=== PATIENT | female | born 1995 | race Caucasian/White ===

== ENCOUNTER 2020-02-25 09:40 | Emergency (ER) | payer SELFPAY ==
[2020-02-25 10:12] VITALS: BP 108/75; PULSE 86; RESP 16; TEMP 36.8; O2SAT 98; BMI 34.0
--- NOTE | 2020-02-25 10:22 | W.ED.EXTPRO ---
HPI - Extremity Problem General: Chief complaint: Extremity Problem,Nontraumatic Stated complaint: RIGHT WRIST PAIN Time Seen by Provider: 02/25/20 10:15 History of Present Illness: HPI Narrative: Patient complains about soreness in her right wrist. A week or 2 been pulling up some jyotsna and in her house and has developed pain in her wrist denies any acute injury. MD Complaint: joint pain Onset (ago): day(s) Pain Consistency: constant Location: right and upper extremity Severity scale (1-10): 4 Quality: aching Radiation: none Relieving factors: immobilization Exacerbating factors: range of motion Associated symptoms: Reports no associated symptoms; Deny chest pain, fever(s) or rash Review of Systems Const: Denies: fever(s), chills or body aches Eyes: Denies: change in vision or blurry vision ENMT: Denies: throat pain or nasal congestion Card: Denies: chest pain or dyspnea on exertion Resp: Denies: dyspnea, productive cough or non-productive cough GI: Denies: abdominal pain, nausea or vomiting Musc: Reports: joint pain; Denies: extremity pain Skin/Breast: Denies: rash Neuro: Denies: headache(s) Psych: Denies: anxiety or depression Melecio/Lymph: Denies: easy bruising [facility] ED Female Reproductive History: Date of last menstrual period: 02/24/20 Physical Exam Const: COMMON NORMALS: no acute distress, average body habitus and patient oriented x3 HENMT: COMMON NORMALS: normocephalic HEAD & SCALP: normal to inspection and normocephalic FACE & SINUS: normal facial exam Eye: COMMON NORMALS: conjunctivae normal GENERAL EYE: appearance normal, both eyes and all related structures CONJUNCTIVA: Yes conjunctivae normal Neck/C-Spine: COMMON NORMALS: no JVD Chest: COMMONS NORMALS: normal inspection of the chest Resp: COMMON NORMALS: normal respiratory effort Cardio: COMMON NORMALS: no JVD Extremity: COMMON NORMALS: normal to inspection and full ROM RIGHT UPPER EXTREMITY: Yes wrist (Has tenderness to the ulnar side tenderness with range of motion there is no swelling no bruising no redness) Neuro: COMMON NORMALS: patient oriented x3 Course Vital Signs: Vital signs: Vital Signs Temperature 98.2 F 02/25/20 10:12 Pulse Rate 86 09/02/20 10:12 Respiratory Rate 16 02/25/20 10:12 Blood Pressure 108/75 02/25/20 10:12 Pulse Oximetry 98 02/25/20 10:12 Discharge Plan Discharge Patient Disposition: Home Clinical Impression: Right wrist tendinitis Condition: Stable Discharge Orders: Discharge Order (Routine); Ordered 02/25/20 Ordered By: Rajeev Valverde Discharge Diet: Usual diet Discharge Activity: Increase activity as tolerated Patient Instructions: Tendinitis (ED) Activity Restrictions/Additional Instructions: Follow-up with medical provider as directed. Can use ibuprofen [id number] for discomfort. I recommend that she buy a cock up wrist splint and wear that to help with the discomfort. Can also buy [id number] Voltaren cream and apply it as directed on the label. Return to the ER or your medical provider if condition worsens. Please read and understand discharge instructions. If any questions ask please. Stand Alone Forms: Work/School Release Coding Level of Care Code ED Capsule Filler for Connie White
== END 2020-02-25 10:46 | disposition home or self-care (01) ==
PROVIDERS: Emergency Provider Nurse Practitioner Family
DX: M77.9 Enthesopathy, unspecified (principal)
CPT/HCPCS: 12345; 99281

== ENCOUNTER → 2021-09-22 08:20 | Outpatient (BNVA) | payer OTHER, SELFPAY | PROVIDERS: Visit Provider Psychiatry & Neurology Psychiatry | DX: F43.12 Post-traumatic stress disorder, chronic (principal); F41.1 Generalized anxiety disorder; F17.210 Nicotine dependence, cigarettes, uncomplicated | CPT/HCPCS: 99204 ==

== ENCOUNTER → 2021-10-20 15:44 | Outpatient (BNVA) | payer OTHER, SELFPAY | PROVIDERS: Visit Provider Psychiatry & Neurology Psychiatry | DX: F41.1 Generalized anxiety disorder (principal); F43.12 Post-traumatic stress disorder, chronic; F17.210 Nicotine dependence, cigarettes, uncomplicated | CPT/HCPCS: 99214 ==

== ENCOUNTER → 2021-12-20 14:38 | Outpatient (BNVA) | payer OTHER, SELFPAY | PROVIDERS: Visit Provider Psychiatry & Neurology Psychiatry | DX: F41.1 Generalized anxiety disorder (principal); F43.12 Post-traumatic stress disorder, chronic; F17.210 Nicotine dependence, cigarettes, uncomplicated | CPT/HCPCS: 99214 ==

== ENCOUNTER → 2023-01-12 10:09 | Outpatient (BNVA) | payer MEDICAID, SELFPAY | PROVIDERS: Visit Provider Nurse Practitioner Family | DX: R05.9 Cough, unspecified (principal); U07.1 COVID-19 | CPT/HCPCS: 87426 ==

== ENCOUNTER → 2023-01-18 15:43 | Outpatient (BNVA) | payer MEDICAID, SELFPAY | PROVIDERS: Visit Provider Emergency Medicine | DX: U07.1 COVID-19 (principal) | CPT/HCPCS: 87426 ==

== ENCOUNTER 2023-10-22 20:34 | Emergency (ER) | payer MEDICAID, SELFPAY ==
[2023-10-22 20:48] VITALS: BP 138/85; PULSE 91; TEMP 36.5; O2SAT 99; BMI 47.9
--- NOTE | 2023-10-22 20:59 | USR_ITS ---
PROCEDURE INFORMATION: Exam: US First Trimester, Transabdominal and US , Transvaginal Exam date and time: 10/22/2023 9:22 PM Age: 28 years old Clinical indication: Lmp or gestational age (in weeks): 6w3d by u/s; Antepartum complications; ; Patient HX: G5-p2-a2-l2 with light vaginal bleeding x 4 hrs. LABS AND CLINICAL REPORTS: Last menstrual period start date: 09/14/2023 Gestational age (Established): 5 w 3 d Estimated due date (Established): 06/20/2024 TECHNIQUE: Imaging protocol: Real-time transabdominal obstetrical ultrasound of the maternal pelvis and a first trimester , less than 14 weeks 0 days, with image documentation. Transvaginal imaging was used for better evaluation of the fetus, adnexa, and/or cervix. COMPARISON: No relevant prior studies available. FINDINGS: GESTATION: Gestation: Intrauterine gestation is visualized. pole is visualized. Yolk sac is visualized. Embryonic/ heart rate: 112 bpm Extra-embryonic membranes/Placenta: Unremarkable. No subchorionic bleed. Amniotic/Chorionic fluid: Amniotic and extra-amniotic fluid are normal for gestational age. BIOMETRY: Gestational age (AUA): 6 w 3 d Estimated due date (AUA): 06/13/2024 [place] rump length (CRL): 6.4 mm. EGA (CRL) is 6 w 3 d MATERNAL: Uterus: Uterus measures 9.3 cm x 6 cm x 5.65 cm. Cervix: Unremarkable. Right ovary/adnexa: Right ovary measures 3.1 cm x 3.2 cm x 2.3 cm. Right ovarian volume is 11.4 mL. Right ovary 9 mm simple cyst may be corpus luteal nature. Left ovary/adnexa: Left ovary measures 1.9 cm x 2.2 cm . Left ovarian volume is 3.1 mL. Intraperitoneal space: No intraperitoneal free fluid. US/US OB <= 14 weeks fetus [id number] IMPRESSION: 1. Single intrauterine without abnormality seen. 2. Right ovary 9 mm simple cyst may be corpus luteal in nature.
--- NOTE | 2023-10-22 21:01 | W.ED.PREGNAN ---
HPI - General: Chief complaint: Vaginal Bleeding Stated complaint: Vag Bleeding Time Seen by Provider: 10/22/23 20:54 Source: patient Mode of arrival: ambulatory Limitations: no limitations History of Present Illness: Patient is a 28-year-old female who presents to the emergency department complaining of vaginal bleeding onset today. Patient reports that she is 5 weeks as confirmed by home test and blood work at primary care's office. She notes that she was at work today and might have overexerted herself. She states after getting home from work she took a nap, and when she awoke she noticed some vaginal bleeding. She says it is more than spotting, however is not very heavy and there is no clotting. She also is denying any pain. 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 No other symptoms to report at this time. MD Complaint: vaginal bleeding Onset (ago): hour(s) Patient : Yes Number of Weeks : 5 OB History - Current : no complications OB History - Previous Pregnancies: miscarriage care: none Associated symptoms: Reports no associated symptoms; Deny abdominal pain, dysuria, headache(s), nausea, vaginal discharge or vomiting Review of Systems General: Reports: 10 or more systems reviewed and unremarkable except in HPI and below Const: Denies: fever(s), chills, change in appetite, change in weight or diaphoresis ENMT: Denies: throat pain or hoarseness Card: Denies: chest pain, palpitations or lightheadedness Resp: Denies: dyspnea, productive cough or wheezing GI: Denies: abdominal pain, nausea, vomiting, diarrhea, constipation, bloating, change in stool character or hematochezia : Reports: vaginal bleeding and other (); Denies: flank pain, difficulty voiding, dysuria, urinary frequency, urinary urgency or vaginal discharge Musc: Denies: neck pain or back pain Skin/Breast: Denies: rash or new lesions Neuro: Denies: headache(s) or dizziness PFSH ED PFSH: Medical History Psychiatric care Family History Grandfather Diabetes paternal grandfather Thyroid disease paternal Heart disease paternal Grandmother Hypertension maternal Denies family history of Ovarian cancer Clotting disorder Hyperlipidemia Breast cancer Anesthesia complication Bleeding disorder Uterine cancer Stroke Social History Substance/Drug Use: former Date of last use: Marijuana - 2019. Physical Exam Const: COMMON NORMALS: no acute distress, average body habitus, patient oriented x3, no limitations, healthy appearing, alert and well nourished GENERAL APPEARANCE: cooperative and comfortable ORIENTATION/CONSCIOUSNESS: Yes awake HENMT: COMMON NORMALS: normocephalic, atraumatic, hearing grossly normal bilaterally, external ears normal, Normal external nose present, Normal nasal mucous membranes and turbinates present and moist oral mucous membranes HEAD & SCALP: normocephalic and atraumatic NOSE: Normal external nose present and Normal nasal mucous membranes and turbinates present EXTERNAL EAR: Yes external ears normal Eye: COMMON NORMALS: Equal, round and reactive pupils present, EOMs intact bilaterally, conjunctivae normal and normal visual barrios by confrontation CONJUNCTIVA: Yes conjunctivae normal PUPIL: Yes Equal, round and reactive pupils present Neck/C-Spine: COMMON NORMALS: full ROM, supple, no meningeal signs and no JVD Resp: COMMON NORMALS: normal respiratory effort, No retractions, No use of accessory muscles and clear to auscultation bilaterally AUSCULTATION: clear to auscultation bilaterally, no crackles, no rales, no rhonchi and no wheezes Cardio: COMMON NORMALS: no JVD, regular rate, regular rhythm, S1 normal heart sound present, S2 normal heart sound present, No gallops present (Cardio), No clicks present (Cardio), No murmurs present (Cardio), No rub (Cardio) and Peripheral pulses 2+ throughout RATE: regular rate RHYTHM: regular rhythm HEART SOUNDS: S1 normal heart sound present and S2 normal heart sound present PERIPHERAL PULSES: Peripheral pulses 2+ throughout GI: COMMON NORMALS: Normal to inspection, nondistended, normoactive bowel sounds present, Soft to palpation, non-tender, No hepatosplenomegaly present and no masses AUSCULTATION: Yes normoactive bowel sounds PALPATION: Yes Soft to palpation, No Guarding due to palpation present (GI), No Rigid due to palpation and Yes No hepatosplenomegaly present RECTAL EXAM: deferred : COMMON NORMALS: Yes no CVA tenderness BLADDER/KIDNEY EXAM: Yes no CVA tenderness Back/Pelvis: COMMON NORMALS: no CVA tenderness Extremity: COMMON NORMALS: normal to inspection and full ROM Neuro: COMMON NORMALS: patient oriented x3, moves all extremities, no focal motor deficits and no sensory deficits noted SENSORIUM/ORIENTATION: Yes alert MENINGEAL SIGNS: Yes no meningeal signs Psych: COMMON NORMALS: mental status grossly normal, cooperative and speech normal SPEECH: Yes normal speech Skin: COMMON NORMALS: no rashes or lesions noted GENERAL SKIN EXAM: no rashes or lesions noted Procedures Perimortem Number of Weeks : 5 Course Vital Signs: Vital signs: Vital Signs Temperature 97.7 F 10/22/23 20:48 Pulse Rate 91 10/22/23 23:26 Respiratory Rate 18 10/22/23 23:26 Blood Pressure 133/77 10/22/23 23:26 Pulse Oximetry 97 10/22/23 23:26 Oxygen Delivery Me thod Room Air 10/22/23 20:48 MDM - OB/Uterine Contractions Medical Decision Making This patient was seen for vaginal bleeding today. She did note that it was a mild amount of bleeding, though is concerned due to her prior history of miscarriage and. Basic lab workup unremarkable. Ultrasound revealed a viable intrauterine with no abnormalities. Upon recheck patient did note that the bleeding had ceased. I informed her that she needs to follow-up with her OB, and to call them tomorrow to try to expedite her visit that was originally scheduled for November 11. In the meantime, I had a thorough conversation with her in regards to reasons to return. She endorses understanding and will call her OB tomorrow to schedule an earlier appointment. Lab Data I reviewed the patient's lab results. 10/22/23 21:17 10/22/23 21:17 Radiology Impressions Ultrasound 10/22/23 20:59 IMPRESSION: 1. Single intrauterine without abnormality seen. 2. Right ovary 9 mm simple cyst may be corpus luteal in nature. Laboratory Results WBC 9.82 10^3/uL (3.29-11.43) 10/22/23 21:17 RBC 4.40 10^6/uL (3.85-5.65) 10/22/23 21:17 Hgb 13.30 g/dL (11.27-16.99) 10/22/23 21:17 Hct 39.4 % (36-47) 10/22/23 21:17 MCV 89.5 fl (85-98) 10/22/23 21:17 MCH 30.2 pg (27-33) 10/22/23 21:17 MCHC 33.8 g/dL (30-55) 10/22/23 21:17 RDW 14.8 % (12.1-15.1) 10/22/23 21:17 Plt Count 338 10^3/cmm (157-399) 10/22/23 21:17 MPV 8.6 fL (7.4-10.4) 10/22/23 21:17 Neut % (Auto) 63.3 % 10/22/23 21:17 Lymph % (Auto) 27.7 % 10/22/23 21:17 Winn % (Auto) 5.7 % 10/22/23 21:17 Eos % (Auto) 2.2 % 10/22/23 21:17 Baso % (Auto) 0.7 % 10/22/23 21:17 Neut # (Auto) 6.21 10^3/uL (1.8-7.7) 10/22/23 21:17 Lymph # (Auto) 2.7 10^3/uL (0.8-4.8) 10/22/23 21:17 Winn # (Auto) 0.6 10^3/uL (0.2-0.9) 10/22/23 21:17 Eos # (Auto) 0.2 10^3/uL (0.0-0.8) 10/22/23 21:17 Baso # (Auto) 0.1 10^3/uL (0.0-0.1) 10/22/23 21:17 Nucleated RBC % (auto) 0 % 10/22/23 21:17 Nucleated RBCs # 0.0 /100WBC 10/22/23 21:17 Sodium 134 mmol/L (136-145) L 10/22/23 21:17 Potassium 3.5 mmol/L (3.5-5.1) 10/22/23 21:17 Chloride 99 mmol/L (98-107) 10/22/23 21:17 Carbon Dioxide 24 mmol/L (22-29) 10/22/23 21:17 Anion Gap 14.5 (5-19) 10/22/23 21:17 BUN 11 mg/dL (6-20) 10/22/23 21:17 Creatinine 0.8 mg/dL (0.5-0.9) 10/22/23 21:17 GFR Calculation 85.4 mL/min (90-130) L 10/22/23 21:17 Glucose 85 mg/dL (65-115) 10/22/23 21:17 Calculated Osmolality 277 mOsm/kg (285-295) L 10/22/23 21:17 Calcium 9.1 mg/dL (8.5-10.5) 10/22/23 21:17 Total Bilirubin 0.2 mg/dL (0.15-1.2) 10/22/23 21:17 AST 25 U/L (0-32) 10/22/23 21:17 ALT 29 U/L (0-33) 10/22/23 21:17 Alkaline Phosphatase 75 U/L (35-105) 10/22/23 21:17 Total Protein 7.2 g/dL (6.6-8.7) 10/22/23 21:17 Albumin 3.8 g/dL (3.5-5.2) 10/22/23 21:17 Globulin 3.4 g/dL (1.3-4.6) 10/22/23 21:17 Ser , Semi-Qnt 28843.00 mIU/mL 10/22/23 21:17 Urine Color Light yellow (Yellow) 10/22/23 21:21 Urine Appearance Hazy (CLEAR) A 10/22/23 21:21 Urine pH 7 (5-7) 10/22/23 21:21 Ur Specific [place] 1.010 (1.005-1.030) 10/22/23 21:21 Urine Protein Neg (Negative) 10/22/23 21:21 Urine Glucose (UA) Norm (Normal) 10/22/23 21:21 Urine Ketones Negative (Negative) 10/22/23 21:21 Urine Blood 3+ (Negative) H 10/22/23 21:21 Urine Nitrate Negative (Negative) 10/22/23 21:21 Urine Bilirubin Neg (Negative) 10/22/23 21:21 Urine Urobilinogen Neg mg/dL (Negative) 10/22/23 21:21 Ur Leukocyte Esterase Negative (Negative) 10/22/23 21:21 Urine RBC 0-4 /hpf (0-2) H 10/22/23 21:21 Urine WBC None /hpf (0-5) 10/22/23 21:21 Ur Squamous Epith Cells 0-4 /hpf (0-5) H 10/22/23 21:21 Amorphous Sediment 2+ /hpf 10/22/23 21:21 Urine Bacteria Trace /hpf (NONE) 10/22/23 21:21 All radiology interpretation(s) finalized by discharge Discharge Plan Discharge Patient Disposition: Home Clinical Impression: Intrauterine , Vaginal bleeding during Condition: Stable Prescriptions: No Action omeprazole magnesium [Acid Diesel Crane Operator (omeprazole)] 20 mg capsule,delayed release(DR/EC) 20 mg PO DAILY fluoxetine [Prozac] 40 mg capsule 80 mg PO DAILY Qty: 60 2RF bupropion HCl [Wellbutrin XL] 150 mg tablet extended release 24 hr 150 mg PO QAM Qty: 30 2RF propranolol 20 mg tablet 20 mg PO BID PRN (Reason: anxiety) Qty: 60 1RF aripiprazole [Abilify] 2 mg tablet 2 mg PO DAILY PRN Discharge Orders: Discharge ED (Routine); Ordered 10/22/23 Ordered By: Mitesh Lin Referrals: Rhina Wilkerson MD [Primary Care Provider] - Discharge Diet: Usual diet Discharge Activity: Increase activity as tolerated Patient Instructions: (ED) Stand Alone Forms: Work/School Release Coding Level of Care Code ED Bilingual Medical Receptionist for Connie White
[2023-10-22 21:24] LABS: Basophils # 0.1 10^3/uL (0.0-0.1); Basophils % 0.7 %; Eosinophils # 0.2 10^3/uL (0.0-0.8); Eosinophils % 2.2 %; Hematocrit 39.4 % (36-47); Lymphocytes # 2.7 10^3/uL (0.8-4.8); Lymphocytes % 27.7 %; Mean Corpuscular HGB Conc 33.8 g/dL (30-55); Mean Corpuscular Hemoglobin 30.2 pg (27-33); Mean Corpuscular Volume 89.5 fl (85-98); Mean Platelet Volume 8.6 fL (7.4-10.4); Monocytes # 0.6 10^3/uL (0.2-0.9); Monocytes % 5.7 %; Neutrophils # 6.21 10^3/uL (1.8-7.7); Neutrophils % 63.3 %; Nucleated Red Blood Cells % 0 %; Platelet Count 338 10^3/cmm (157-399); Red Cell Distribution Width 14.8 % (12.1-15.1); White Blood Count 9.82 10^3/uL (3.29-11.43)
[2023-10-22 21:43] LABS: Alanine Aminotransferase 29 U/L (0-33); Albumin Level 3.8 g/dL (3.5-5.2); Alkaline Phosphatase 75 U/L (35-105); Anion Gap 14.5 (5-19); Aspartate Amino Transferase 25 U/L (0-32); Blood Urea Nitrogen 11 mg/dL (6-20); Calcium 9.1 mg/dL (8.5-10.5); Carbon Dioxide 24 mmol/L (22-29); Chloride 99 mmol/L (98-107); Creatinine Clr Calc Pharmacy 123.5696; Globulin 3.4 g/dL (1.3-4.6); Glomerular Filtration Rate 85.4 mL/min (90-130); Glucose 85 mg/dL (65-115); Osmolality Calculated 277 mOsm/kg (285-295); Potassium 3.5 mmol/L (3.5-5.1); Sodium 134 mmol/L (136-145); Total Bilirubin 0.2 mg/dL (0.15-1.2); Total Protein 7.2 g/dL (6.6-8.7)
[2023-10-22 21:57] LABS: Add Urine Microscopic? YES; Bilirubin Urine Neg (Negative); Blood Urine 3+ (Negative); Glucose Urine UA Norm (Normal); Ketones Urine Negative (Negative); Leukocyte Esterase Urine Negative (Negative); Nitrate Urine Negative (Negative); Protein Urine Neg (Negative); Urine Appearance Hazy (CLEAR); Urine Color Light yellow (Yellow); Urobilinogen Urine Neg (Negative); pH Urine 7 (5-7)
[2023-10-22 21:58] LABS: Add Urine Culture? No; Amorphous Sediment Urine 2+ /hpf; Bacteria Urine TRACE /hpf; RBC Urine 0-4 /hpf (0-2); Squamous Epithelial Cell Urine 0-4 /hpf (0-5)
[2023-10-22 23:26] VITALS: BP 133/77; PULSE 91; RESP 18; O2SAT 97
== END 2023-10-22 23:28 | disposition home or self-care (01) ==
PROVIDERS: Emergency Provider Physician Assistant; PCP Family Medicine
DX: O20.9 Hemorrhage in early pregnancy, unspecified (principal); Z3A.01 Less than 8 weeks gestation of pregnancy
CPT/HCPCS: 36415; 76801; 80053; 81001; 84702; 85025; 99284

== ENCOUNTER 2024-01-17 02:03 | Inpatient (IN) | payer MEDICAID, SELFPAY ==
[2024-01-16] VITALS (8 sets, daily range): BP systolic 106–152; BP diastolic 57–81; PULSE 86–99; RESP 18; TEMP 37.3–37.4; BMI 47.4
--- NOTE | 2024-01-16 16:45 | USR_ITS ---
PROCEDURE INFORMATION: Exam: US , Limited Exam date and time: 01/16/2024 5:07 PM Age: 28 years old Clinical indication: Condition or disease; Lmp or gestational age (weeks): 18 weeks 5 days per PT due date; Other: Demise; 5th ; ; Additional info: demise LABS AND CLINICAL REPORTS: Gestational age (Established): 18 w 5 d Estimated due date (Established): 06/13/2024 TECHNIQUE: Imaging protocol: Real-time ultrasound of the maternal uterus with image documentation. Exam focused on the clinical indication. COMPARISON: US OB <= 14 weeks fetus [id number] 10/22/2023 9:22 PM FINDINGS: Gestation: There is an intrauterine gestational sac that contains a nonviable fetus. There is no evidence of cardiac activity. Minimal amniotic fluid is noted. Fetus lies in breech presentation. presentation and position: Breech US/US OB limited [id number] IMPRESSION: demise
[2024-01-16 17:16] LABS: Basophils % 0.3 %; Eosinophils # 0.2 10^3/uL (0.0-0.8); Eosinophils % 1.4 %; Hematocrit 36.6 % (36-47); Lymphocytes # 2.2 10^3/uL (0.8-4.8); Lymphocytes % 16.4 %; Mean Corpuscular HGB Conc 34.4 g/dL (30-55); Mean Corpuscular Hemoglobin 30.9 pg (27-33); Mean Corpuscular Volume 89.7 fl (85-98); Mean Platelet Volume 9.5 fL (7.4-10.4); Monocytes # 0.7 10^3/uL (0.2-0.9); Monocytes % 5.5 %; Neutrophils # 9.93 10^3/uL (1.8-7.7); Neutrophils % 75.8 %; Nucleated Red Blood Cells % 0 %; Platelet Count 304 10^3/cmm (157-399); Red Blood Count 4.08 10^6/uL (3.85-5.65); Red Cell Distribution Width 14.1 % (12.1-15.1); White Blood Count 13.11 10^3/uL (3.29-11.43)
[2024-01-16] MEDS: miSOPROStol 200 mcg Tablet 800 MCG VAGINAL (17:32)
[2024-01-16] MEDS: fentaNYL 50 mcg/mL INJ 2mL IVP ×2 (21:41→23:02)
[2024-01-17] VITALS (20 sets, daily range): BP systolic 93–140; BP diastolic 54–75; PULSE 76–105; RESP 14–20; TEMP 36.4–37.7; O2SAT 94–100
[2024-01-17] MEDS: fentaNYL 50 mcg/mL INJ 2mL IVP (00:31)
[2024-01-17] MEDS: miSOPROStol 200 mcg Tablet 800 MCG PR (00:52)
[2024-01-17] MEDS: ketorolac 30 mg/mL INJ IVP (01:31)
[2024-01-17] MEDS: morphine 4 mg/mL SDV 1 mL IVP (01:34)
--- NOTE | 2024-01-17 02:04 | PM.HP ---
Providers/Chief Complaint Admitting Physician: Rhina Wilkerson MD Primary Care Provider: Rhina Wilkerson MD Chief Complaint: IOL History of Present Illness History physical and patient admission done 01/16/2024 Natasha Nieto is a 28 year old female -0-2-2 at 18 weeks 3 days gestation who is admitted here for induction and delivery of intrauterine demise. She had presented for routine care 01/15/24 and when heart tones were not heard by Doppler ultrasound was performed in office. In office intrauterine demise was confirmed by myself and our water treatment technician. There was no cardiac activity and no blood flow. Patient has not had any bleeding or cramping. We will start her induction with high-dose misoprostol. Review of Systems Narrative: No vaginal bleeding, cramping, or loss of fluid. No fever chills nausea or vomiting. Medications/Allergies Home Medications Medication Instructions Recorded Confirmed Last Taken Type omeprazole magnesium 20 mg 20 mg PO DAILY 09/22/21 06/01/23 Unknown History capsule,delayed release (Acid Blast Furnace Auxiliaries Supervisor (omeprazole)) propranolol 20 mg tablet 20 mg PO BID PRN anxiety #60 tabs 10/20/21 06/01/23 Unknown Rx bupropion HCl 150 mg 24 hr tablet, 150 mg PO QAM #30 tabs 05/30/23 06/01/23 Unknown Rx extended release (Wellbutrin XL) fluoxetine 40 mg capsule (Prozac) 80 mg (2 x 40 mg) PO DAILY #60 caps 05/30/23 06/01/23 Unknown Rx aripiprazole 2 mg tablet (Abilify) 2 mg PO DAILY PRN 06/01/23 06/01/23 Unknown History Allergies Allergy/AdvReac Type Severity Reaction Status Date / Time ampicillin Allergy ALGY-Rash Verified 10/22/23 20:52 cillins AdvReac Intermediate Rash Uncoded 10/22/23 20:52 PFSH Acute PFSH: Medical History Psychiatric care Family History Grandfather Diabetes paternal grandfather Thyroid disease paternal Heart disease paternal Grandmother Hypertension maternal Denies family history of Ovarian cancer Clotting disorder Hyperlipidemia Breast cancer Anesthesia complication Bleeding disorder Uterine cancer Stroke Social History Substance/Drug Use: former Date of last use: Marijuana - 2019. Female Reproductive History: : 5 Vitals/I&O/Wt Last Vital Signs Temp 99.3 F 01/16/24 23:00 Pulse 97 01/16/24 21:54 Resp 20 H 01/17/24 01:34 BP 106/57 01/16/24 21:54 O2 Del Method Room Air 01/16/24 16:44 Weight last 48 hrs Weight 113.852 kg Physical Exam Narrative: Patient is alert and oriented heart regular rate and rhythm, lungs clear to auscultation bilaterally, abdomen is soft and nontender, extremities have no calf tenderness and no edema. Data 01/16/24 16:45 A&P Assessment and plan (1) Intrauterine before 20 weeks of gestation: The patient is being admitted for induction and delivery of an 18-week demise. Attestations Medical Necessity Statement*: Routine induction and delivery of demise Coding Level of Care Code Acute Code for Chg Fwd Diagnoses Intrauterine before 20 weeks of gestation O02.1
--- NOTE | 2024-01-17 02:10 | P.ANESASSM_ITS ---
Pre-Anesthetic Assessment Height/Weight: Height 1.55 m Weight 113.852 kg Temp Pulse Resp BP O2 Del Method 99.3 F 97 20 H 106/57 Room Air 01/16/24 23:00 01/16/24 21:54 01/17/24 01:34 01/16/24 21:54 01/16/24 16:44 D& C Familial anesthetic complications: NOne Was Beta Franklin taken within 24 hours: N/A Was Clonidine taken within 24 hours: N/A Last intake: Sips of water Social No alcohol and No tobacco Exam alert, oriented x 3, clear to auscultation bilaterally and regular rate & rhythm Airway Mallampati: Class IV Dentition: other (missing, chipped) GI Gastroesophageal Reflux Disease Metabolic Morbid Obesity Anesthetic Plan ASA status: 2 Anesthesia: General Risk of > 500 ml blood loss (7ml/kg in children): No Medications/Allergies Home Medications Medication Instructions Recorded Confirmed Last Taken Type omeprazole magnesium 20 mg 20 mg PO DAILY 09/22/21 06/01/23 Unknown History capsule,delayed release (Acid Or Nurse Manager (omeprazole)) propranolol 20 mg tablet 20 mg PO BID PRN anxiety #60 tabs 10/20/21 06/01/23 Unknown Rx bupropion HCl 150 mg 24 hr tablet, 150 mg PO QAM #30 tabs 05/30/23 06/01/23 Unknown Rx extended release (Wellbutrin XL) fluoxetine 40 mg capsule (Prozac) 80 mg (2 x 40 mg) PO DAILY #60 caps 05/30/23 06/01/23 Unknown Rx aripiprazole 2 mg tablet (Abilify) 2 mg PO DAILY PRN 06/01/23 06/01/23 Unknown History Allergies Allergy/AdvReac Type Severity Reaction Status Date / Time ampicillin Allergy ALGY-Rash Verified 10/22/23 20:52 cillins AdvReac Intermediate Rash Uncoded 10/22/23 20:52 Current Medications Generic Name Dose Route Start Last Admin Trade Name Freq PRN Reason Stop Dose Admin Fentanyl 25 - 100 mcg 01/16/24 16:43 01/17/24 00:31 Fentanyl 50 Mcg/Ml Inj 2ml IVP 100 mcg Q1H PRN Administration SEVERE PAIN Lactated Ringer's 1,000 mls @ 999 mls/hr 01/17/24 01:58 01/17/24 02:28 Lactated Ringers IV 01/17/24 02:58 999 mls/hr .Q1H1M ONE Administration PFSH Anesthesia Medical History Psychiatric care Family History Grandfather Diabetes paternal grandfather Thyroid disease paternal Heart disease paternal Grandmother Hypertension maternal Denies family history of Ovarian cancer Clotting disorder Hyperlipidemia Breast cancer Anesthesia complication Bleeding disorder Uterine cancer Stroke Social History Substance/Drug Use: former Date of last use: Marijuana - 2019. Female Reproductive History : 5 Data Anesthesia 01/16/24 16:45 Short CBC 01/16/24 Range/Units 16:45 WBC 13.11 H (3.29-11.43) 10^3/uL Hgb 12.60 (11.27-16.99) g/dL Hct 36.6 (36-47) % MCV 89.7 (85-98) fl Plt Count 304 (157-399) 10^3/cmm Neut % (Auto) 75.8 % Neut # (Auto) 9.93 H (1.8-7.7) 10^3/uL Blood Bank 01/16/24 16:45 Blood Type B Positive Rho(D) Type Rh positive Antibody Screen Negative Cardiac Studies: 2 No Data to Display
--- NOTE | 2024-01-17 02:14 | PM.DELIVERY ---
Delivery Note: Date of delivery: January 17, 2024 Pre-delivery diagnoses: Intrauterine demise at 18 weeks 3 days gestation Post-delivery diagnoses: Vaginal delivery of 18-week demise with tight nuchal cord x 2 Retained portions of placenta Intrapartum hemorrhage Estimated blood loss (mL): 1,100 Delivery: I was notified by nursing that the patient got up to use the restroom and delivered the fetus in her underwear. When I presented the fetus had been taken to the warmer. Upon inspection it was rather boggy and had a nuchal cord x 2 that was rather tight. The patient was still cramping significantly and was passing some large clots. The vaginal vault was manually inspected and the placenta was palpable at the os but was unable to be removed using traction on the umbilical cord. The patient was given her second dose of Cytotec orally and more pain medications. However she continued to pass large clots. Using ring forceps I was able to grasp the placenta that was easily palpated at the os and extracted a small portion of it but it was extremely friable. Due to her heavy bleeding decision was made to take the patient to OR for general sedation and placental extraction with possible uterine curettage. History History History 2 Term 2 0 Miscarriages/Ectopic 0 Living Children 2 A&P Assessment and plan (1) demise before 20 weeks with retention of fetus: The patient has delivered the fetus vaginally but has partially retained placenta. She has heavy bleeding and will be taken to the OR for general anesthesia and placental extraction. Coding Level of Care Code Acute Code for Chg Fwd Diagnoses demise before 20 weeks with retention of fetus O02.1
[2024-01-17] MEDS: famotidine 20 mg/2 mL INJ IVP (02:25)
[2024-01-17] MEDS: citric acid-sodium citrate 30 mL UDC PO (02:25)
[2024-01-17] MEDS: metoclopramide 5 mg/mL SDV 2 mL 10 MG IVP (02:26)
[2024-01-17] MEDS: lactated ringers 1,000 ML 999 ML IV (02:28)
--- NOTE | 2024-01-17 03:07 | PM.OP ---
Operative Report Date of procedure: January 17, 2024 Pre-op diagnosis: Retained placenta Post-op diagnosis: Retained placenta Procedure done: Manual extraction of products of conception Surgeon: Rhina Wilkerson MD Estimated blood loss (mL): 75 Brief History: The patient had a vaginal delivery of an 18-week demise. Using ring forceps she vaginally delivered a portion of the placenta but it was very friable and obviously not completely removed. She continued to cramp and bleed so she was taken to the OR for placental extraction. Procedure: After general anesthesia was administered using a sterile gown and glove I was able to manually reach up into the uterus, grasp the placenta and remove the remaining half. The uterus was manually explored until I was certain it was clear of any further clots and chunks of tissue. The uterus was clamping down nicely and the patient's bleeding had abated. The patient was awakened in the OR and taken recovery and to recovery in stable condition
[2024-01-17] MEDS: ceFAZolin 2,000 mg SDV 2000 MG IVP (05:15)
[2024-01-17] MEDS: ibuprofen 800 mg tablet PO (10:35)
[2024-01-17] MEDS: docusate sodium 100 mg Capsule PO (10:36)
--- NOTE | 2024-01-17 12:29 | P.DS_ITS ---
Discharge Providers Date of Admission: 01/17/24 02:03 Date of Discharge: January 17, 2024 Attending Provider at Admission: Rhina Wilkerson MD Attending Provider at Discharge: Rhina Wilkerson MD Primary Care Provider: Rhina Wilkerson MD Diagnoses at Discharge Discharge Diagnosis (1) demise before 20 weeks with retention of fetus: Status: Acute Reason for Visit Reason for Visit: IOL Hospital Course Hospital Course This is a 28-year-old who was diagnosed with an intrauterine demise at 18 weeks 3 days gestation. She was admitted for induction and delivery. She underwent induction using Cytotec. After delivery of the infant she had retained pieces of placenta. She had significant blood loss so she was taken to the OR for general anesthesia and manual extraction of the placenta. She has done well postoperatively. She is feeling well, ambulating, and tolerating a regular diet. She is comfortable with discharge home. Physical Exam Narrative: Alert and oriented, resting in bed, heart regular rate and rhythm, lungs clear to auscultation bilaterally, abdomen is soft and nontender, extremities have no calf tenderness and trace edema Discharge Data Studies Completed and Pending Completed Studies During Hospitalization Category Date Time Status US OB limited [id number] Stat Ultrasound 01/16/24 16:45 Completed Pending at discharge Category Date Time Status Hemagram Timed Lab 01/17/24 09:00 Uncollected Radiology Impressions Obstetrics Ultrasound 01/16/24 16:45 IMPRESSION: demise Laboratory Results WBC 13.11 10^3/uL (3.29-11.43) H 01/16/24 16:45 RBC 4.08 10^6/uL (3.85-5.65) 01/16/24 16:45 Hgb 12.60 g/dL (11.27-16.99) 01/16/24 16:45 Hct 36.6 % (36-47) 01/16/24 16:45 MCV 89.7 fl (85-98) 01/16/24 16:45 MCH 30.9 pg (27-33) 01/16/24 16:45 MCHC 34.4 g/dL (30-55) 01/16/24 16:45 RDW 14.1 % (12.1-15.1) 01/16/24 16:45 Plt Count 304 10^3/cmm (157-399) 01/16/24 16:45 MPV 9.5 fL (7.4-10.4) 01/16/24 16:45 Neut % (Auto) 75.8 % 01/16/24 16:45 Lymph % (Auto) 16.4 % 01/16/24 16:45 [place] % (Auto) 5.5 % 01/16/24 16:45 Eos % (Auto) 1.4 % 01/16/24 16:45 Baso % (Auto) 0.3 % 01/16/24 16:45 Neut # (Auto) 9.93 10^3/uL (1.8-7.7) H 01/16/24 16:45 Lymph # (Auto) 2.2 10^3/uL (0.8-4.8) 01/16/24 16:45 [place] # (Auto) 0.7 10^3/uL (0.2-0.9) 01/16/24 16:45 Eos # (Auto) 0.2 10^3/uL (0.0-0.8) 01/16/24 16:45 Baso # (Auto) 0.0 10^3/uL (0.0-0.1) 01/16/24 16:45 Nucleated RBC % (auto) 0 % 01/16/24 16:45 Nucleated RBCs # 0.0 /100WBC 01/16/24 16:45 Blood Type B Positive 01/16/24 16:45 Rho(D) Type Rh positive 01/16/24 16:45 Antibody Screen Negative 01/16/24 16:45 Vitals Last Vital Signs Temp 98.4 F 01/17/24 06:45 Pulse 82 01/17/24 06:45 Resp 17 01/17/24 06:45 BP 98/56 01/17/24 06:45 Pulse Ox 95 01/17/24 06:45 O2 Del Method Room Air 01/17/24 06:45 Discharge Plan Discharge Patient Disposition: Home Condition: Stable Prescriptions: New Cytotec 200 mcg tablet 200 mcg PO TID Qty: 6 0RF Discontinued omeprazole magnesium [Ac[employer] Research Programmer (omeprazole)] 20 mg capsule,delayed r elease(DR/EC) 20 mg PO DAILY fluoxetine [Prozac] 40 mg capsule 80 mg PO DAILY Qty: 60 2RF bupropion HCl [Wellbutrin XL] 150 mg tablet extended release 24 hr 150 mg PO QAM Qty: 30 2RF propranolol 20 mg tablet 20 mg PO BID PRN (Reason: anxiety) Qty: 60 1RF aripiprazole [Abilify] 2 mg tablet 2 mg PO DAILY PRN Discharge Orders: Discharge Order (Routine); Ordered 01/17/24 Ordered By: Rhina Wilkerson Referrals: Rhina Wilkerson MD [Primary Care Provider] - 1 week Discharge Diet: Usual diet Discharge Activity: Limit activity as instructed Patient Instructions: Opioid Safety Activity Restrictions/Additional Instructions: Nothing per vagina for 6 weeks Discharge Attestations Time Spent in Discharge Care*: less than 30 min Quality Metrics Clinical Quality Measures [ No reported AMI, CVA or VTE this stay] Coding Level of Care Code Acute Code for Chg Fwd Diagnoses demise before 20 weeks with retention of fetus O02.1
[2024-01-17 12:52] LABS: Hematocrit 27.2 % (36-47); Mean Corpuscular HGB Conc 34.6 g/dL (30-55); Mean Corpuscular Hemoglobin 31.1 pg (27-33); Mean Corpuscular Volume 90.1 fl (85-98); Mean Platelet Volume 9.3 fL (7.4-10.4); Platelet Count 252 10^3/cmm (157-399); Red Blood Count 3.02 10^6/uL (3.85-5.65); Red Cell Distribution Width 13.8 % (12.1-15.1); White Blood Count 17.47 10^3/uL (3.29-11.43)
--- NOTE | 2024-01-18 00:22 | PC.NURSE ---
This RN was called to patient room at approximately 0005 per patient call light. Patient stated she felt baby coming down into vaginal vault. This RN notified charge nurse Lincoln Johnston RN and brought nursery blankets into room for delivery. This RN instructed patient to lay on edge of bed for further inspection and amniotic sac and fetus passively came out of vagina and was caught in blanket by this RN. ROM occured at time of (0010). Cord was clamped x2 and cut by this RN. Fetus was then moved to warmer by Lincoln Johnston and this RN stayed with patient at bedside. Dr. Wilkerson arrived to room at approximately 0020 and began process of removing placenta. Issues with placenta not coming out passively so Dr. Wilkerson gave this RN orders for 100 mcg of fentanyl at 0030 and took fetus to nursery for post mortem care with Lincoln Johnston RN. Patient pain not completely relieved by fentanyl one hour after administration and pain worse than before. Dr. Wilkerson in room at 0130 and orders received to adminter 30mg of ketorolac and 4mg of morphine for pain. Pain was greatly reduced by pain medications and Dr. Wilkerson still waiting for placenta to detach on its own after multiple attempts at removal. decision to go to OR for manual removal for retained placenta at approximately 0215.
--- NOTE | 2024-01-18 00:56 | PC.NURSE ---
Order received for ancef 2g once per Dr. Wilkerson at [id number]
--- NOTE | 2024-01-18 00:59 | PC.NURSE ---
This RN checked patient at 2350 after patient request to use restroom. Nothing in vaginal vault past cervix at this time.
== END 2024-01-17 14:00 | disposition home or self-care (01) | DRG 806 ==
PROVIDERS: Admitting Provider Family Medicine; PCP Family Medicine; Visit Provider Family Medicine
DX: O02.1 Missed abortion (principal); O72.2 Delayed and secondary postpartum hemorrhage; Z37.1 Single stillbirth; O69.1XX0 Labor and delivery complicated by cord around neck, with compression, not applicable or unspecified; Z3A.18 18 weeks gestation of pregnancy
CPT/HCPCS: 36415; 59409; 76815; 85025; 85027; 86850; 86900; J0330; J0690; J1100; J1885; J2270; J2371; J2405; J2704; J2765; J3010; J3490; J7120

== ENCOUNTER 2025-04-01 17:10 | Outpatient (CLI) | payer MEDICAID, SELFPAY ==
[2025-04-01 17:10] VITALS: BMI 52.8
[2025-04-01 17:20] VITALS: BP 125/74; PULSE 92
[2025-04-01 17:35] VITALS: BP 124/76; PULSE 84
[2025-04-01 17:43] VITALS: BP 124/76; PULSE 84; RESP 17; O2SAT 98
== END 2025-04-01 17:43 | disposition home or self-care (01) ==
LOC: OPOB 17:16 → OBGYN 17:16
PROVIDERS: PCP Family Medicine; Visit Provider Family Medicine
DX: O13.9 Gestational [pregnancy-induced] hypertension without significant proteinuria, unspecified trimester (principal); Z3A.00 Weeks of gestation of pregnancy not specified
CPT/HCPCS: 59025; 99211

== ENCOUNTER 2025-04-27 12:02 | Outpatient (CLI) | payer MEDICAID, SELFPAY ==
[2025-04-27 12:10] VITALS: BMI 53.2
[2025-04-27 12:27] VITALS: BP 116/69; PULSE 82; TEMP 35.7
[2025-04-27 12:43] VITALS: BP 97/53; PULSE 83
[2025-04-27 12:57] VITALS: BP 102/55; PULSE 78
== END 2025-04-27 13:11 | disposition home or self-care (01) ==
LOC: OPOB 12:06 → OBGYN 12:06
PROVIDERS: PCP Family Medicine; Visit Provider Family Medicine
DX: O13.9 Gestational [pregnancy-induced] hypertension without significant proteinuria, unspecified trimester (principal); Z3A.00 Weeks of gestation of pregnancy not specified
CPT/HCPCS: 59025; 99211

== ENCOUNTER 2025-05-05 12:07 | Outpatient (CLI) | payer MEDICAID, SELFPAY ==
[2025-05-05] VITALS (7 sets, daily range): BP systolic 128–136; BP diastolic 69–76; PULSE 86–96; RESP 16; O2SAT 98; BMI 54.6
[2025-05-05 12:45] LABS: Hematocrit 29.5 % (36-47); Hemoglobin 9.10 g/dL (11.27-16.99); Mean Corpuscular HGB Conc 30.8 g/dL (30-55); Mean Corpuscular Hemoglobin 24.4 pg (27-33); Mean Corpuscular Volume 79.1 fl (85-98); Nucleated Red Blood Cells % 0 %; Platelet Count 258 10^3/cmm (157-399); Red Blood Count 3.73 10^6/uL (3.85-5.65); White Blood Count 11.66 10^3/uL (3.29-11.43)
[2025-05-05 12:52] LABS: Glucose Urine UA Negative (Normal); Nitrate Urine Negative (Negative); Specific Gravity, Urine 1.007 (1.005-1.030)
[2025-05-05 12:55] LABS: Add Urine Microscopic? YES
[2025-05-05 13:04] LABS: Alanine Aminotransferase 9 U/L (0-33); Albumin Level 3.2 g/dL (3.5-5.2); Alkaline Phosphatase 180 U/L (35-105); Anion Gap 16.0 (5-19); Aspartate Amino Transferase 12 U/L (0-32); Blood Urea Nitrogen 7 mg/dL (6-20); Calcium 8.6 mg/dL (8.5-10.5); Carbon Dioxide 21 mmol/L (22-29); Chloride 107 mmol/L (98-107); Creatinine Clr Calc Pharmacy 265.7368; Globulin 3.3 g/dL (1.3-4.6); Glucose 87 mg/dL (65-115); Osmolality Calculated 287 mOsm/kg (285-295); Potassium 4.0 mmol/L (3.5-5.1); Sodium 140 mmol/L (136-145); Total Protein 6.5 g/dL (6.6-8.7); Uric Acid 5.3 mg/dL (2.4-5.7)
[2025-05-05 13:09] LABS: UPRO/UCREAT Ratio 0.17 mg/mg CR
== END 2025-05-05 13:47 | disposition home or self-care (01) ==
LOC: OPOB 12:08 → OBGYN 12:10
PROVIDERS: PCP Family Medicine; Visit Provider Family Medicine
DX: O13.9 Gestational [pregnancy-induced] hypertension without significant proteinuria, unspecified trimester (principal); Z3A.00 Weeks of gestation of pregnancy not specified
CPT/HCPCS: 36415; 59025; 80053; 81001; 82570; 83615; 84156; 84550; 85025; 87086; 99211

== ENCOUNTER 2025-05-12 07:00 | Inpatient (IN) | payer MEDICAID, SELFPAY ==
[2025-05-12] VITALS (65 sets, daily range): BP systolic 115–173; BP diastolic 58–99; PULSE 74–104; RESP 2–24; TEMP 35.7–37; O2SAT 94–97; BMI 54.3
[2025-05-12 06:51] LABS: Hematocrit 27.5 % (36-47); Hemoglobin 8.60 g/dL (11.27-16.99); Mean Corpuscular HGB Conc 31.3 g/dL (30-55); Mean Corpuscular Hemoglobin 24.2 pg (27-33); Mean Corpuscular Volume 77.5 fl (85-98); Nucleated Red Blood Cells % 0.2 %; Platelet Count 224 10^3/cmm (157-399); Red Blood Count 3.55 10^6/uL (3.85-5.65); White Blood Count 11.17 10^3/uL (3.29-11.43)
[2025-05-12] MEDS: oxytocin 30 UNIT/500 ML BAG IV (07:23)
--- NOTE | 2025-05-12 17:18 | PM.OPHPUD ---
Labor & Delivery H&P Update Date of Procedure: May 12, 2025 Date H&P Performed: 05/05/25 Admission Diagnosis: IUP at 39 weeks gestation Planned procedure: Induction of labor and delivery with expectant management
[2025-05-12] MEDS: fentaNYL 50 mcg/mL INJ 2mL IVP ×2 (17:29→18:33)
[2025-05-12] MEDS: tranexamic acid 1,000 MG/100 ML PREMIX 600 MG IV (19:54)
--- NOTE | 2025-05-12 20:59 | ANES.PREANE2 ---
Pre-Anesthetic Assessment Height/Weight: Height 5 ft 1 in Weight 288 lb Temp Pulse Resp BP O2 Del Method 98.2 F 102 H 17 122/79 Room Air 05/12/25 18:30 05/12/25 20:24 05/12/25 18:33 05/12/25 20:24 05/12/25 06:24 Preop Diagnosis: hemorrhage/cervical laceration Operation Date: 05/12/25 21:00 Proposed Procedures p Dilation And Evacuation(Not Applicable) - Rhina Wilkerson MD Was Beta Franklin taken within 24 hours: N/A Was Clonidine taken within 24 hours: N/A Social Tobacco and No alcohol Exam alert, oriented x 3, clear to auscultation bilaterally and regular rate & rhythm Airway Submandibular: within normal limits Cervical ROM: within normal limits Mallampati: Class III Dentition: full Anesthetic Plan ASA status: 3E Anesthesia: General Other: I was called emergently for a hemorrhage stating that patient had a cervical laceration during delivery Upon arrival, PRBCs were running patient had 2 peripheral IVs Patient states she has no prior issues with anesthesia Patient states that she has not ate since 6 AM but did have a few sips of water at delivery Current smoker BMI 54 PTSD noted Denies any cardiac issues Patient's vitals are currently stable, BP 122/79, HR 102 Labs reviewed from this morning. Hemoglobin 8.6 at that time Patient has 2 units PRBCs crossed and ready Plan for GETA with RSI Medications/Allergies Home Medications ?Medication ?Instructions ?Recorded ?Confirmed ?Last Taken ?Type omeprazole 40 mg capsule,delayed 40 mg PO DAILY 04/06/24 05/12/25 05/12/25 History release Allergies Allergy/AdvReac Type Severity Reaction Status Date / Time ampicillin Allergy ALGY-Rash Verified 05/12/25 06:46 Penicillins AdvReac Intermediate ALGY-Rash Verified 05/12/25 06:46 Current Medications Generic Name Dose Route Start Last Admin Trade Name Freq PRN Reason Stop Dose Admin Fentanyl 25 - 100 mcg 05/12/25 06:22 05/12/25 18:33 Fentanyl 50 Mcg/Ml Inj 2ml IVP 50 mcg Q1H PRN Administration SEVERE PAIN Oxytocin 30 unit in 500 mls @ 1 mls/hr 05/12/25 06:30 05/12/25 11:45 Pitocin IV 20 milliunit/min .Q24H JOVANI 20 mls/hr Protocol Titration 1 MILLIUNIT/MIN Dextrose/Lactated Ringer's 1,000 mls @ 125 mls/hr 05/12/25 06:30 05/12/25 15:28 Dextrose 5%-Lactated Ringers IV 125 mls/hr .Q8H JOVANI Administration Lanolin 1 applic 05/12/25 06:22 05/12/25 15:31 Lanolin Oint 7 Gm TOPICAL 1 applic PRN PRN Administration DRYNESS PFSH Anesthesia Family History Grandfather Diabetes paternal grandfather Thyroid disease paternal Heart disease paternal Grandmother Hypertension maternal Denies family history of Ovarian cancer Clotting disorder Hyperlipidemia Breast cancer Anesthesia complication Bleeding disorder Uterine cancer Stroke Social History Smoking and tobacco/nicotine status: never used tobacco/nicotine Substance/Drug Use: former Date of last use: Marijuana - 2019. Female Reproductive History : 5 Data Anesthesia 05/12/25 06:35 Short CBC 05/12/25 Range/Units 06:35 WBC 11.17 (3.29-11.43) 10^3/uL Hgb 8.60 L (11.27-16.99) g/dL Hct 27.5 L (36-47) % MCV 77.5 L (85-98) fl Plt Count 224 (157-399) 10^3/cmm Neut % (Auto) 74.1 % Neut # (Auto) 8.29 H (1.8-7.7) 10^3/uL Blood Bank 05/12/25 05/12/25 05/12/25 06:35 06:35 06:35 Blood Type Cancelled B Positive Rho(D) Type Cancelled Rh positive Antibody Screen Cancelled 05/12/25 06:35 Blood Type Rho(D) Type Antibody Screen Negative
--- NOTE | 2025-05-12 21:32 | P.PCNOB_ITS ---
Delivery Note: Date of delivery: May 12, 2025 Pre-Delivery Course: The patient had routine care at [facility]. The patient's was complicated by smoking, obesity and a low-lying placenta that had resolved at 28 weeks gestation. This was confirmed by transvaginal ultrasound. At the patient's last 2 visits she had elevated blood pressures 140s but this this was not reproducible when she was sent to labor and delivery. However decision was made to proceed with induction as soon as she turned 39 weeks gestation. labs: Blood type B+ antibody negative, hepatitis B nonreactive, hepatitis C nonreactive, HIV nonreactive, rubella nonimmune, GC chlamydia negative, RPR nonreactive, UDS negative, Q low risk, she passed her glucose tolerance test, she was GBS negative. Delivery: This is a 29-year-old at 39 weeks 0 days gestation who is admitted for an induction. Her cervix was favorable at 3 cm 60% effaced so she was started on high-dose Pitocin. When she was on 20 units of Pitocin and her cervix was 4 cm dilated she underwent artificial rupture of membranes with clear fluid. Due to the patient's obesity it was difficult to keep the on the monitor so [address] a scalp electrode but both times the scalp electrode was not picking up correctly. We went back to external monitoring. The patient declined an epidural for pain management. I was notified by nursing that the patient had made rapid change from 6 cm to anterior lip and was feeling the urge to push. I arrived shortly after delivery and the infant was on the mother's abdomen. The cord was clamped and the father of the baby was allowed to cut the cord. Cord blood was obtained. The patient was noted to have some brisk vaginal bleeding and attempts were made to deliver the placenta using tension on the cord. Fundal massage was also used to expedite delivery of the placenta but it still took a little bit longer than I would have liked. Once the placenta was delivered it was grossly intact and normal to inspection. The patient had copious vaginal bleeding that responded intermittently to fundal pressure and massage. She was given 800 mcg of Cytotec rectally and started on transexemic acid. The patient continued to have brisk vaginal bleeding making examination of the cervix difficult. Hemabate was given and 2 units of O- blood were called for as well as the anesthesia team. Although the bleeding slowed, the lower half of the cervix was still not visible. Patient's obesity and discomfort contributed to a difficult examination. Once anesthesia arrived she was taken to the OR for pelvic exam underneath and general anesthesia. See operative report for further details. History History History 6 Term 2 0 Miscarriages/Ectopic 0 Living Children 2 A&P Assessment and plan 1. Normal spontaneous vaginal delivery: 2. hemorrhage: 3. Anemia: PDMP PDMP Reviewed: Not Reviewed Coding Level of Care Code Acute Code for Chg Fwd Diagnoses Normal spontaneous vaginal delivery O80 hemorrhage O72.1 Anemia D64.9
[2025-05-12] MEDS: oxytocin 30 UNIT/500 ML BAG 999 UNIT IV (21:37)
--- NOTE | 2025-05-12 21:48 | PC.NURSE ---
1st unit completed. Second unit started after Isabell JEFFRIES RN and Chanel Rivera RN verified all necessay data. [id number]
--- NOTE | 2025-05-12 21:50 | PM.OP ---
Operative Report Date of procedure: May 12, 2025 Pre-op diagnosis: hemorrhage with suspected cervical laceration Post-op diagnosis: hemorrhage without cervical laceration Procedure done: Pelvic exam under general anesthesia Manual exploration and curettage of the uterus Surgeon: Rhina Wilkerson MD Estimated blood loss (mL): 400 Brief History: The patient had significant hemorrhage immediately following normal spontaneous vaginal delivery. The copious amount of blood made it difficult to examine the cervix in its entirety and since the patient delivered without an epidural it was suspected that she may have had a cervical laceration. Procedure: The patient was taken to the OR where general anesthesia was administered. She was prepped and draped in normal sterile fashion in dorsal lithotomy position. A weighted speculum was inserted into the vagina and a right angle retractor was placed anteriorly. The cervix was grasped with ring forceps and the circumference was inspected for any lacerations. There were none. Manual exploration was performed and a small clot was removed from the lower uterine segment. Once it was felt the uterus was clear of any clots and debris the procedure was concluded. Patient was awakened in the OR and went to recovery in stable condition.
[2025-05-12 22:55] LABS: Hematocrit 26.3 % (36-47); Hemoglobin 8.40 g/dL (11.27-16.99); Mean Corpuscular HGB Conc 31.9 g/dL (30-55); Mean Corpuscular Hemoglobin 25.4 pg (27-33); Mean Corpuscular Volume 79.5 fl (85-98); Nucleated Red Blood Cells % 0 %; Platelet Count 215 10^3/cmm (157-399); Red Blood Count 3.31 10^6/uL (3.85-5.65); White Blood Count 19.21 10^3/uL (3.29-11.43)
[2025-05-12] MEDS: benzocaine-menthol 78 gm Canister 1 SPRAY TOPICAL (23:24)
[2025-05-13] VITALS (18 sets, daily range): BP systolic 122–155; BP diastolic 61–98; PULSE 80–110; RESP 16–18; TEMP 36.8–37.2
--- NOTE | 2025-05-13 00:30 | PC.NURSE ---
This RN placed call to Dr. Wilkerson at 1932 notifying her that the pt was a 9.5, 90, -1 station involuntarily pushing and feeling pressure. Dr. Wilkerson stated she was on her way to bedside. This RN entered the pt room at 1933 and AURORA vásquez stated that pt was involuntarily pushing with every ctx. This RN called out to AURORA garcía to update that the pt was involuntarily pushing and a small crown was noted. Infant born at 1934 and placed on mothers abdomen. Dr. Wilkerson to the bedside at 1943. Placenta delivered at 1949. The patient had copious vaginal bleeding that responded intermittently to continuous fundal pressure and massage. She was given 800 mcg of Cytotec rectally [place] [address] Wilkerson and started on transexemic acid at 1953. The patient continued to have brisk vaginal bleeding. Hemabate was given at 2000 by mary and a 2nd line was started by fahad. 2 units of O- blood started at 2018 and the anesthesia team was contacted at 2005. Pt taken to main OR by jonathan along with bigg at 2033.
[2025-05-13] MEDS: ferrous sulfate EC 325 mg Tablet PO (05:01)
[2025-05-13] MEDS: PRENATAL VIT NO.130/IRON/FOLIC 1 EACH TABLET PO (05:01)
[2025-05-13 08:56] LABS: Hematocrit 21.4 % (36-47); Hemoglobin 6.90 g/dL (11.27-16.99); Mean Corpuscular HGB Conc 32.2 g/dL (30-55); Mean Corpuscular Hemoglobin 25.7 pg (27-33); Mean Corpuscular Volume 79.6 fl (85-98); Platelet Count 203 10^3/cmm (157-399); Red Blood Count 2.69 10^6/uL (3.85-5.65); White Blood Count 21.13 10^3/uL (3.29-11.43)
--- NOTE | 2025-05-13 16:50 | P.PN_ITS ---
Subjective 2 Subjective: She is doing well today. She is ambulating, tolerating a regular diet, does not complain of any dizziness and has been eating Vitals/I&O/Wt Last Vital Signs Temp 98.2 F 05/13/25 05:04 Pulse 96 05/13/25 16:01 Resp 18 05/13/25 05:04 BP 127/81 05/13/25 16:01 Pulse Ox 96 05/12/25 23:24 O2 Del Method Nasal Cannula 05/12/25 21:50 O2 Flow Rate 2 05/12/25 21:50 05/13/25 05/13/25 05/13/25 06:59 14:59 22:59 Output Total 350 / 750 Balance -350 / 2200.000 Weight last 48 hrs Weight 130.635 kg Physical Exam 2 Narrative: Alert and oriented sitting up in bed with family, heart regular rate and rhythm, lungs clear to auscultation bilaterally, abdomen is soft and nontender, fundus is firm, extremities have 2+ edema but no calf tenderness Data 05/13/25 08:45 A&P Assessment and plan 1. Normal spontaneous vaginal delivery: Routine care 2. hemorrhage: Patient had a significant immediate hemorrhage after delivery yesterday, and was taken to the OR for examination under general anesthesia. She did not have any cervical or vaginal lacerations that required any repair, her uterus was manually explored and evacuated. By the time she was in the OR the bleeding had significantly lightened. Received Cytotec, transects Cara acid, Hemabate and 2 units of packed red blood cells. Her hemoglobin today is 6.9. She is asymptomatic. We will continue to monitor her and if she is doing well likely home tomorrow PDMP PDMP Reviewed: Not Reviewed Attestations 2 Medical Necessity Statement*: and postoperative care Coding Level of Care Code Acute Code for Chg Fwd Diagnoses Normal spontaneous vaginal delivery O80 hemorrhage O72.1
[2025-05-14 04:08] VITALS: BP 131/61; PULSE 91
[2025-05-14] MEDS: ferrous sulfate EC 325 mg Tablet PO (05:30)
[2025-05-14] MEDS: PRENATAL VIT NO.130/IRON/FOLIC 1 EACH TABLET PO (05:30)
[2025-05-14 09:54] VITALS: BP 124/79; PULSE 88
[2025-05-14 09:55] VITALS: RESP 16; TEMP 36.7
--- NOTE | 2025-05-14 12:21 | P.DS_ITS ---
Discharge Providers Date of Admission: 05/12/25 07:00 Date of Discharge: May 14, 2025 Attending Provider at Admission: Rhina Wilkerson MD Attending Provider at Discharge: Rhina Wilkerson MD Primary Care Provider: Rhina Wilkerson MD Diagnoses at Discharge Discharge Diagnosis 1. Normal spontaneous vaginal delivery: Details from hospital stay: Nothing per vagina for 6 weeks. Follow-up in 4 weeks. 2. hemorrhage: 3. Acute blood loss anemia: Details from hospital stay: She will be discharged home on oral iron. Reason for Visit Reason for Visit: IOL Hospital Course Hospital Course This is a 29-year-old G6 now P3 who was admitted for induction of labor and delivery. She had a normal spontaneous vaginal delivery of a viable female . Immediately after delivery she had hemorrhage. She was taken to the OR for examination under general anesthesia and was not found to have any cervical lacerations. She was treated aggressively with tranexamic acid, Cytotec, Pitocin, and Hemabate. She received 2 units of packed red blood cells. On day #2 she is doing well. Ambulating, tolerating a regular diet, and is requesting discharge home. Physical Exam Narrative: Alert and oriented sitting up in bed, heart regular rate and rhythm, lungs clear to auscultation bilaterally, abdomen is soft and nontender, fundus is firm, extremities have 2+ edema but no calf tenderness Discharge Data Studies Completed and Pending Pending at discharge Category Date Time Status High Risk PP Hemorrhage Stat Lab 05/12/25 06:35 Received Leukocyte Reduced RBC Stat Lab 05/12/25 06:35 Results Type and Screen Stat Lab 05/12/25 06:35 Results Laboratory Results WBC 21.13 10^3/uL (3.29-11.43) H 05/13/25 08:45 RBC 2.69 10^6/uL (3.85-5.65) L 05/13/25 08:45 Hgb 6.90 g/dL (11.27-16.99) L 05/13/25 08:45 Hct 21.4 % (36-47) L 05/13/25 08:45 MCV 79.6 fl (85-98) L 05/13/25 08:45 MCH 25.7 pg (27-33) L 05/13/25 08:45 MCHC 32.2 g/dL (30-55) 05/13/25 08:45 RDW 16.6 % (12.1-15.1) H 05/13/25 08:45 Plt Count 203 10^3/cmm (157-399) 05/13/25 08:45 MPV 10.6 fL (7.4-10.4) H 05/13/25 08:45 Neut % (Auto) 90.2 % 05/12/25 22:45 Lymph % (Auto) 4.8 % 05/12/25 22:45 [place] % (Auto) 3.7 % 05/12/25 22:45 Eos % (Auto) 0.1 % 05/12/25 22:45 Baso % (Auto) 0.3 % 05/12/25 22:45 Neut # (Auto) 17.33 10^3/uL (1.8-7.7) H 05/12/25 22:45 Lymph # (Auto) 0.9 10^3/uL (0.8-4.8) 05/12/25 22:45 [place] # (Auto) 0.7 10^3/uL (0.2-0.9) 05/12/25 22:45 Eos # (Auto) 0.0 10^3/uL (0.0-0.8) 05/12/25 22:45 Baso # (Auto) 0.1 10^3/uL (0.0-0.1) 05/12/25 22:45 Nucleated RBC % (auto) 0 % 05/12/25 22:45 Nucleated RBCs # 0.0 /100WBC 05/12/25 22:45 Blood Type B Positive 05/12/25 06:35 Blood Type Cancelled 05/12/25 06:35 Rho(D) Type Cancelled 05/12/25 06:35 Rho(D) Type Rh positive 05/12/25 06:35 Antibody Screen Cancelled 05/12/25 06:35 Antibody Screen Negative 05/12/25 06:35 Crossmatch See Detail 05/12/25 06:35 Vitals Last Vital Signs Temp 98.1 F 05/14/25 09:55 Pulse 88 05/14/25 09:54 Resp 16 05/14/25 09:55 BP 124/79 05/14/25 09:54 Pulse Ox 96 05/12/25 23:24 O2 Del Method Room Air 05/13/25 16:01 O2 Flow Rate 2 05/12/25 21:50 Discharge Plan Discharge Patient Disposition: Home Condition: Stable Prescriptions: New ferrous sulfate 325 mg (65 mg iron) Tablet,Delayed Release (Dr/Ec) 325 mg PO DAILY Qty: 30 0RF Continued omeprazole 40 mg capsule,delayed release(DR/EC) 40 mg PO DAILY Discharge Order = DC NOW: Discharge Order (Routine); Ordered 05/14/25 Ordered By: Rhina Wilkerson Referrals: Rhina Wilkerson MD [Primary Care Provider, [facility][1]] - 06/11/25 1:15 pm Referral Note: * Your 4 week appointment is with Dr. Wilkerson on May at 1:15pm. Discharge Diet: Usual diet Discharge Activity: Limit activity as instructed Patient Instructions: Depression (DC), Opioid Safety (DC), Preeclampsia and Eclampsia After Delivery (GEN), Hemorrhage (DC), OB Food/Drug Interaction Guide, OB Care at Home, Opioid Safety, Post Anesthesia Care, OB Vaginal Deliveries, Patient Portal & Jennifer Instructions, Abnormal Bleeding Activity Restrictions/Additional Instructions: Nothing per vagina for 6 weeks Discharge Attestations Time Spent in Discharge Care*: less than 30 min Quality Metrics Clinical Quality Measures [ No reported AMI, CVA or VTE this stay] Coding Level of Care Code Acute Code for Chg Fwd Diagnoses Normal spontaneous vaginal delivery O80 hemorrhage O72.1 Acute blood loss anemia D62
[2025-05-14] MEDS: measles,mumps,rubella pf Vial (w/diluent) 0.5 ML SUBCUT (12:43)
[2025-05-14 12:46] VITALS: BP 117/59; PULSE 89
[2025-05-14 13:00] VITALS: BP 117/59; PULSE 89; RESP 16; TEMP 37; O2SAT 97
[2025-05-15 01:29] LABS: High Risk PP Hemorrhage BBK Notified
== END 2025-05-14 13:10 | disposition home or self-care (01) | DRG 560 ==
LOC: OPOB 11:27 → OBGYN 11:27
PROVIDERS: Student in an Organized Health Care Education/Training Program; Admitting Provider Family Medicine; PCP Family Medicine; Visit Provider Family Medicine
PROC: 10E0XZZ Delivery of Products of Conception, External Approach (ICD-10-PCS; principal; 2025-05-12 21:00)
PROC: 10E0XZZ Delivery of Products of Conception, External Approach (ICD-10-PCS; CPT 58120; 2025-05-12 21:00)
DX: O99.214 Obesity complicating childbirth (principal); E66.9 Obesity, unspecified; O67.9 Intrapartum hemorrhage, unspecified; O72.1 Other immediate postpartum hemorrhage; Z3A.39 39 weeks gestation of pregnancy; Z37.0 Single live birth; O90.81 Anemia of the puerperium; D62 Acute posthemorrhagic anemia
CPT/HCPCS: 36415; 59409; 85025; 85027; 86850; 86900; 86920; 90707; 96372; J0330; J1100; J1200; J2405; J2590; J2704; J3010; J3490; J7030; J7121; J9999; P9016